=== PATIENT | female | born 1935 | race Caucasian/White ===

== ENCOUNTER 2017-01-29 20:36 | Inpatient (IN) | payer MEDICARE, OTHER ==
[~2017-01-29] VITALS: Ht 167.6 cm; Wt 60.6 kg
[2017-01-29 20:55] VITALS: BP 141/101; PULSE 115; RESP 18; TEMP 98.5; O2SAT 97
[2017-01-29 22:03] LABS: AUTOMATED NEUTROPHIL # 2.7 TH/MM3 (1.8-7.7); BASOPHIL % 0.7 % (0.0-2.0); EOSINOPHIL # 0.1 TH/MM3 (0-0.4); EOSINOPHIL % 2.5 % (0.0-4.0); HEMATOCRIT 36.3 % (35.0-46.0); HEMO FLAGS DIFF FINAL; LYMPH % 23.5 % (9.0-44.0); MEAN CELL VOLUME 91.2 FL (80.0-100.0); MEAN CORPUSCULAR HEMOGLOBIN 30.4 PG (27.0-34.0); MEAN CORPUSCULAR HGB CONC 33.3 % (32.0-36.0); MONO % 9.3 % (0.0-8.0); PLATELET COUNT 235 TH/MM3 (150-450); RED BLOOD COUNT 3.98 MIL/MM3 (4.00-5.30); WHITE BLOOD COUNT 4.3 TH/MM3 (4.0-11.0)
[2017-01-29 22:13] LABS: ANION GAP 8 MEQ/L (5-15); AST (GOT) 18 U/L (15-37); BICARBONATE 26.5 MEQ/L (21.0-32.0); BLOOD UREA NITROGEN 17 MG/DL (7-18); CHLORIDE 107 MEQ/L (98-107); GLOMERULAR FILTRATION RATE 56 ML/MIN (>89); POTASSIUM 3.9 MEQ/L (3.5-5.1); SODIUM (NA) 141 MEQ/L (136-145)
[2017-01-29 22:13] LABS: BLOOD, URINE NEG (NEG); COMMENT (UR) CULT NOT INDICATED; CULTURE IF INDICATED CULT NOT INDICATED; GLUCOSE,URINE NEG (NEG); HYALINE CAST, URINE 4 /lpf (RARE); KETONE, URINE NEG (NEG); MUCUS URINE FEW /lpf (OCC); NITRITE,URINE NEG (NEG); SQUAMOUS EPITHELIAL CELL URINE <1 /hpf (0-5); URINE COLOR LIGHT-YELLOW (YELLW/STRAW)
[2017-01-29 22:16] LABS: ALKALINE PHOSPHATASE 118 U/L (45-117); ALT (GPT) 28 U/L (10-53); TOTAL BILIRUBIN ADULT 0.3 MG/DL (0.2-1.0)
[2017-01-29 22:18] LABS: ACETAMINOPHEN LESS THAN 2.0 MCG/ML (10.0-30.0); ALCOHOL LESS THAN 3 MG/DL (0-5)
[2017-01-29] MEDS ORDERED: ALLE60TA PO (22:18)
[2017-01-29] MEDS ORDERED: LEXA20TA PO (22:18)
[2017-01-29] MEDS ORDERED: MESA400C (22:18)
[2017-01-29] MEDS ORDERED: MESA400C PO (22:19)
[2017-01-29] MEDS ORDERED: CELE200C PO (22:19)
[2017-01-29] MEDS ORDERED: SERO25TA PO (22:20)
[2017-01-29] MEDS ORDERED: TRAM50TA PO (22:20)
[2017-01-29] MEDS ORDERED: VALS1TAB65 PO (22:20)
[2017-01-30 01:00] VITALS: BP 112/62; PULSE 71; RESP 16; O2SAT 98
[2017-01-30] MEDS ORDERED: SERO50TA PO (01:20)
[2017-01-30] MEDS ORDERED: diphenhydrAMINE HCL 50 MG/ML VIAL IM ONE (01:30)
[2017-01-30] MEDS ORDERED: OLANZapine IM 10 MG VIAL IM ONE ×2 (01:45→05:45)
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
[2017-01-30 05:00] VITALS: BP 121/64; PULSE 68; RESP 17; O2SAT 97
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
[2017-01-30] MEDS ORDERED: MAGNESIUM HYDROXIDE SUSP 30 ML CUP PO PRN (12:15)
[2017-01-30] MEDS ORDERED: ALUMINUM/MAGNESIUM/SIMETH 30 ML CUP PO PRN (12:15)
[2017-01-30] MEDS ORDERED: ACETAMINOPHEN 325 MG TAB PO PRN (12:15)
[2017-01-30] MEDS ORDERED: LORazepam 0.5 MG TAB PO PRN (12:15)
[2017-01-30] MEDS ORDERED: LORazepam 2 MG/ML VIAL IM PRN (12:15)
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
[2017-01-30 14:30] VITALS: BP 168/74; PULSE 68; RESP 17; TEMP 97.8; O2SAT 95
[2017-01-30] MEDS ORDERED: VALSARTAN 160 MG TAB PO ONE (16:30)
[2017-01-30 18:16] VITALS: BP 152/67; PULSE 85; RESP 16; TEMP 97.7; O2SAT 96
[2017-01-30] MEDS ORDERED: SERO25TA PO (19:35)
[2017-01-30] MEDS ORDERED: DELZICOL PO SCH (21:00)
[2017-01-30] MEDS: QUEtiapine FUMARATE 25 MG TAB PO SCH (23:18)
[2017-01-31 05:00] VITALS: BP 130/70; PULSE 73; RESP 15; TEMP 97.8; O2SAT 91
[2017-01-31 07:32] LABS: AUTOMATED NEUTROPHIL # 2.1 TH/MM3 (1.8-7.7); BASOPHIL % 1.2 % (0.0-2.0); EOSINOPHIL # 0.2 TH/MM3 (0-0.4); EOSINOPHIL % 4.5 % (0.0-4.0); HEMATOCRIT 36.8 % (35.0-46.0); HEMO FLAGS DIFF FINAL; LYMPH % 34.6 % (9.0-44.0); LYMPHOCYTE # 1.4 TH/MM3 (1.0-4.8); MEAN CELL VOLUME 91.8 FL (80.0-100.0); MEAN CORPUSCULAR HEMOGLOBIN 30.4 PG (27.0-34.0); MEAN CORPUSCULAR HGB CONC 33.2 % (32.0-36.0); NEUT % 50.7 % (16.0-70.0); PLATELET COUNT 243 TH/MM3 (150-450); RED BLOOD COUNT 4.01 MIL/MM3 (4.00-5.30); RED CELL DISTRIBUTION WIDTH 14.1 % (11.6-17.2); WHITE BLOOD COUNT 4.2 TH/MM3 (4.0-11.0)
[2017-01-31 07:59] LABS: ANION GAP 8 MEQ/L (5-15); AST (GOT) 20 U/L (15-37); BLOOD UREA NITROGEN 18 MG/DL (7-18); CHLORIDE 110 MEQ/L (98-107); GLOMERULAR FILTRATION RATE 46 ML/MIN (>89); POTASSIUM 3.8 MEQ/L (3.5-5.1); SODIUM (NA) 144 MEQ/L (136-145)
[2017-01-31 08:26] LABS: ALKALINE PHOSPHATASE 101 U/L (45-117); ALT (GPT) 21 U/L (10-53); LDL CHOLESTEROL 130 MG/DL (0-99); TOTAL BILIRUBIN ADULT 0.3 MG/DL (0.2-1.0)
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
--- NOTE | 2017-01-31 09:14 | EKG ---
Date Performed: 01/31/2017 Time Performed: 07:16:17 PTAGE: 81 years EKG: Baseline artifact present Sinus rhythm NONSPECIFIC ST & T-WAVE ABNORMALITY BORDERLINE ECG NO PREVIOUS TRACING DOCTOR: Payam Lugo Interpretating Date/Time 01/31/2017 09:13:45
[2017-01-31] MEDS: CELECOXIB 200 MG CAP PO SCH (09:33)
[2017-01-31] MEDS: LORATADINE 10 MG TAB PO SCH (09:33)
[2017-01-31] MEDS: VALSARTAN 160 MG TAB PO SCH (09:33)
[2017-01-31] MEDS ORDERED: INFLUENZA VIRUS VACCINE (QUADRIVALENT) 0.5 ML SYR IM ONE (10:00)
[2017-01-31] MEDS ORDERED: PNEUMOCOCCAL POLYVALENT INJ 25 MCG/0.5 ML SYR IM ONE (10:00)
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
[2017-01-31] MEDS: QUEtiapine FUMARATE 25 MG TAB PO SCH ×2 (11:17→23:11)
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
[2017-01-31 15:53] LABS: HEMOGLOBIN A1a 1.2 %; HEMOGLOBIN A1b 0.9 %; HEMOGLOBIN Ao 84.8 %; HEMOGLOBIN F 1.2 %; HEMOGLOBIN LA1C 1.9 %; HEMOGLOBIN P3 3.6 %
[2017-01-31 17:46] VITALS: BP 133/79; PULSE 87; RESP 16; TEMP 98.2
[2017-02-01] MEDS: traMADol HCL 50 MG TAB PO PRN (00:45)
[2017-02-01] MEDS: clonazePAM 0.5 MG TAB PO PRN ×2 (00:46→23:28)
[2017-02-01 06:05] VITALS: BP 169/80; PULSE 83; RESP 17; TEMP 97.7; O2SAT 99
[2017-02-01] MEDS: QUEtiapine FUMARATE 25 MG TAB PO SCH ×2 (09:01→21:37)
[2017-02-01] MEDS: LORATADINE 10 MG TAB PO SCH (09:01)
[2017-02-01] MEDS: VALSARTAN 160 MG TAB PO SCH (09:01)
[2017-02-01] MEDS: CELECOXIB 200 MG CAP PO SCH (09:01)
[2017-02-01] MEDS ORDERED: cloNIDine HCL 0.1 MG TAB PO PRN (09:15)
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
--- NOTE | 2017-02-01 11:41 | HHI.PYPN ---
Subjective Remarks Patient seen for follow-up, chart review. Discussion with nursing staff reported that patient's noted to be somewhat irritable, has been compliant with medications and has been noted to be very forgetful. Patient found lying in hospital bed sufficient cooperative but able to engage. Patient states that she had been sleeping well, her mood has been good in general, noted to be alert and oriented only to person. Patient keeps asking video games storywriter where she is and who I am during same conversation. Patient has has not had aggressive behavior since admission had been tolerating medications well with no adverse drug reactions noted. Review of Systems Except as stated in HPI: all other systems reviewed are Neg Mental Status Examination Appearance: Appropriate, Disheveled Consciousness: Alert, Vigilant Orientation: Person Motor Activity: Normal gait, Abnormal gait Speech: Hesitant Language: Other Fund of Knowledge: Inadequate Attention and Concentration: Inadequate Memory: Impaired Mood: Appropriate Affect: Irritable (less so today) Thought Process & Associations: Linear, Other (concrete) Thought Content: Appropriate Hallucination Type: None Delusion Type: None Suicidal Ideation: No Suicidal Plan: No Suicidal Intention: No Homicidal Ideation: No Homicidal Plan: No Homicidal Intention: No Insight: Poor Judgment: Poor Results Vitals/IOs Vital Signs Date Time Temp Pulse Resp B/P (MAP) Pulse Ox O2 Delivery O2 Flow Rate FiO2 02/01/17 06:05 97.7 83 17 169/80 (109) 99 01/30/17 05:00 Room Air Intake and Output 02/01/17 02/01/17 02/02/17 08:00 16:00 00:00 Intake Total 0 ml Balance 0 ml Assessment & Plan Problem List: (1) Dementia in other diseases classified elsewhere with behavioral disturbance ICD Codes: F02.81 - Dementia in other diseases classified elsewhere with behavioral disturbance (2) Alzheimer's dementia with behavioral disturbance ICD Codes: G30.8 - Other Alzheimer's disease; F02.81 - Dementia in other diseases classified elsewhere with behavioral disturbance Assessment & Plan Patient at this time continues to be noted to be alert and oriented only to person. Patient continues to be confused but has not had any aggressive behavior since admission. Patient tolerating medications well. Patient tolerated recent increase quetiapine. If patient continues to remain stable on medications without any noted behavioral disturbances patient likely for discharge tomorrow back to family. Continue to monitor mood and behavior. Continue recommendations as per primary medical team. Labs have been ordered for tomorrow a.m. by medical team Discharge planning in progress Justification for Cont. Inpt. At risk for further decompensation if at lower level of care Discharge Planning Patient to return back to her residence once psychiatrically and medically cleared Volodymyr Lowe MD Feb 01, 2017 11:41
[2017-02-01 18:15] VITALS: BP 162/73; PULSE 90; RESP 18; TEMP 98.5; O2SAT 95
[2017-02-02] MEDS ORDERED: HALOPERIDOL LACTATE 5 MG/ML AMP ONE (00:14)
[2017-02-02] MEDS: HALOPERIDOL LACTATE 5 MG/ML AMP IM SCH (00:30)
[2017-02-02 06:12] VITALS: BP 118/58; PULSE 87; RESP 16; TEMP 98; O2SAT 99
[2017-02-02] MEDS: VALSARTAN 160 MG TAB PO SCH (09:14)
[2017-02-02] MEDS: LORATADINE 10 MG TAB PO SCH (09:15)
[2017-02-02] MEDS: CELECOXIB 200 MG CAP PO SCH (09:15)
[2017-02-02] MEDS: QUEtiapine FUMARATE 25 MG TAB PO SCH ×2 (09:15→21:54)
[2017-02-02 09:33] LABS: AUTOMATED NEUTROPHIL # 2.1 TH/MM3 (1.8-7.7); BASOPHIL % 0.8 % (0.0-2.0); EOSINOPHIL # 0.2 TH/MM3 (0-0.4); EOSINOPHIL % 4.5 % (0.0-4.0); HEMATOCRIT 35.4 % (35.0-46.0); HEMO FLAGS DIFF FINAL; LYMPH % 33.9 % (9.0-44.0); LYMPHOCYTE # 1.4 TH/MM3 (1.0-4.8); MEAN CELL VOLUME 91.6 FL (80.0-100.0); MEAN CORPUSCULAR HGB CONC 33.8 % (32.0-36.0); MONO % 10.8 % (0.0-8.0); PLATELET COUNT 238 TH/MM3 (150-450); RED BLOOD COUNT 3.87 MIL/MM3 (4.00-5.30); RED CELL DISTRIBUTION WIDTH 13.8 % (11.6-17.2); WHITE BLOOD COUNT 4.3 TH/MM3 (4.0-11.0)
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
[2017-02-02 09:59] LABS: ANION GAP 8 MEQ/L (5-15); AST (GOT) 21 U/L (15-37); BICARBONATE 26.7 MEQ/L (21.0-32.0); BLOOD UREA NITROGEN 21 MG/DL (7-18); CHLORIDE 108 MEQ/L (98-107); GLOMERULAR FILTRATION RATE 53 ML/MIN (>89); MAGNESIUM 2.3 MG/DL (1.5-2.5); POTASSIUM 3.8 MEQ/L (3.5-5.1); SODIUM (NA) 143 MEQ/L (136-145)
[2017-02-02 10:04] LABS: ALKALINE PHOSPHATASE 101 U/L (45-117); ALT (GPT) 20 U/L (10-53); TOTAL BILIRUBIN ADULT 0.2 MG/DL (0.2-1.0)
--- NOTE | 2017-02-02 12:00 | HHI.PYPN ---
Subjective Remarks Patient seen for follow-up, chart reviewed. Discussion she staff reported that patient is very forgetful, demeaning with staff, and recent ETO last evening for aggressive and agitation. Patient found lying in hospital bed noted to be slightly irritable as patient had to be woken up from sleep and states that she is feeling fine, denies any physical completed this time. Patient states that she met a handsome gentleman last evening but unclear whether this so that she was endorsing that she had dreamed about or believe that had occurred. Patient does not recall events last evening continues to be very confused and alert and oriented only to person very poor memory. Patient was unable to recall who lives with her at home. Patient this time denies any SI, HI, AVH or delusions. Review of Systems Except as stated in HPI: all other systems reviewed are Neg Mental Status Examination Appearance: Appropriate, Disheveled Consciousness: Alert, Vigilant Orientation: Person Motor Activity: Abnormal gait Speech: Slow Language: Other Fund of Knowledge: Inadequate Attention and Concentration: Inadequate Memory: Impaired Mood: Appropriate Affect: Irritable (less so today), Other (guarded) Thought Process & Associations: Linear, Other (concrete) Thought Content: Appropriate Hallucination Type: None Delusion Type: None Suicidal Ideation: No Suicidal Plan: No Suicidal Intention: No Homicidal Ideation: No Homicidal Plan: No Homicidal Intention: No Insight: Poor Judgment: Poor Results Labs Labs reviewed. Test 02/02/17 08:44 White Blood Count 4.3 TH/MM3 Red Blood Count 3.87 MIL/MM3 Hemoglobin 12.0 GM/DL Hematocrit 35.4 % Mean Corpuscular Volume 91.6 FL Mean Corpuscular Hemoglobin 31.0 PG Mean Corpuscular Hemoglobin Concent 33.8 % Red Cell Distribution Width 13.8 % Platelet Count 238 TH/MM3 Mean Platelet Volume 7.8 FL Neutrophils (%) (Auto) 50.0 % Lymphocytes (%) (Auto) 33.9 % Monocytes (%) (Auto) 10.8 % Eosinophils (%) (Auto) 4.5 % Basophils (%) (Auto) 0.8 % Neutrophils # (Auto) 2.1 TH/MM3 Lymphocytes # (Auto) 1.4 TH/MM3 Monocytes # (Auto) 0.5 TH/MM3 Eosinophils # (Auto) 0.2 TH/MM3 Basophils # (Auto) 0.0 TH/MM3 CBC Comment DIFF FINAL Differential Comment Blood Urea Nitrogen 21 MG/DL Creatinine 1.00 MG/DL Random Glucose 93 MG/DL Total Protein 6.6 GM/DL Albumin 3.2 GM/DL Calcium Level 9.3 MG/DL Phosphorus Level 4.0 MG/DL Magnesium Level 2.3 MG/DL Alkaline Phosphatase 101 U/L Aspartate Amino Transf (AST/SGOT) 21 U/L Alanine Aminotransferase (ALT/SGPT) 20 U/L Total Bilirubin 0.2 MG/DL Sodium Level 143 MEQ/L Potassium Level 3.8 MEQ/L Chloride Level 108 MEQ/L Carbon Dioxide Level 26.7 MEQ/L Anion Gap 8 MEQ/L Estimat Glomerular Filtration Rate 53 ML/MIN Vitals/IOs Vital Signs Date Time Temp Pulse Resp B/P (MAP) Pulse Ox O2 Delivery O2 Flow Rate FiO2 02/02/17 06:12 98.0 87 16 118/58 (78) 99 01/30/17 05:00 Room Air Intake and Output 02/02/17 02/02/17 02/03/17 08:00 16:00 00:00 Intake Total 600 ml Balance 600 ml Assessment & Plan Problem List: (1) Dementia in other diseases classified elsewhere with behavioral disturbance ICD Codes: F02.81 - Dementia in other diseases classified elsewhere with behavioral disturbance (2) Alzheimer's dementia with behavioral disturbance ICD Codes: G30.8 - Other Alzheimer's disease; F02.81 - Dementia in other diseases classified elsewhere with behavioral disturbance Assessment & Plan Patient this time had episode of agitation and aggressiveness that occurred last evening for the first time since admission which she required ETO (Haldol 2 mg IM) with good effect. We'll increase quetiapine to 25mg AM and 62.5mg HS. Continue to monitor mood and behavior. The recommendations as per primary medical team as well as continue physical therapy. Discharge planning in progress Justification for Cont. Inpt. At risk for further decompensation if at lower level of care Discharge Planning Patient return back to his daughter's residence once psychiatrically stable Volodymyr Lowe MD Feb 02, 2017 12:00
[2017-02-02] MEDS ORDERED: PILL SPLITTER OTHER PRN (12:15)
[2017-02-02 18:00] VITALS: BP 157/80; PULSE 79; RESP 16; TEMP 97.9; O2SAT 93
[2017-02-02] MEDS: clonazePAM 0.5 MG TAB PO PRN (21:53)
[2017-02-03 06:04] VITALS: BP 130/61; PULSE 78; RESP 16; TEMP 97; O2SAT 93
[2017-02-03] MEDS: VALSARTAN 160 MG TAB PO SCH (08:24)
[2017-02-03] MEDS: QUEtiapine FUMARATE 25 MG TAB PO SCH ×2 (08:24→20:18)
[2017-02-03] MEDS: CELECOXIB 200 MG CAP PO SCH (08:24)
[2017-02-03] MEDS: LORATADINE 10 MG TAB PO SCH (08:26)
--- NOTE | 2017-02-03 17:20 | HHI.PYPN ---
Subjective Remarks Pt seen and discussed with staff. She is oriented only to self. She has been labile and agitated. She received prn ativan this morning for agitation which calmed pt. She has been refusing to keep boot on for fracture and is irritable with RNs during care. She insists that her mother is awaiting her call. . No SI/ HI. Mental Status Examination Appearance: Appropriate, Disheveled Consciousness: Alert, Vigilant Orientation: Person Motor Activity: Abnormal gait Speech: Slow Language: Other Fund of Knowledge: Inadequate Attention and Concentration: Inadequate Memory: Impaired Mood: Appropriate Affect: Irritable (easily agitated), Other (guarded) Thought Process & Associations: Linear, Other (concrete) Thought Content: Appropriate Hallucination Type: None Delusion Type: None Suicidal Ideation: No Suicidal Plan: No Suicidal Intention: No Homicidal Ideation: No Homicidal Plan: No Homicidal Intention: No Insight: Poor Judgment: Poor Results Vitals/IOs Vital Signs Date Time Temp Pulse Resp B/P (MAP) Pulse Ox O2 Delivery O2 Flow Rate FiO2 02/03/17 06:04 97.0 78 16 130/61 (84) 93 Intake and Output 02/03/17 02/03/17 02/04/17 08:00 16:00 00:00 Intake Total 120 ml 720 ml 120 ml Balance 120 ml 720 ml 120 ml Assessment & Plan Problem List: (1) Dementia in other diseases classified elsewhere with behavioral disturbance ICD Codes: F02.81 - Dementia in other diseases classified elsewhere with behavioral disturbance (2) Alzheimer's dementia with behavioral disturbance ICD Codes: G30.8 - Other Alzheimer's disease; F02.81 - Dementia in other diseases classified elsewhere with behavioral disturbance Assessment & Plan Continue current tx plan. Estimated LOS: days Justification for Cont. Inpt. agitation Sabine Mckeon MD Feb 03, 2017 17:20
[2017-02-03] MEDS: clonazePAM 0.5 MG TAB PO PRN (17:41)
[2017-02-03 18:00] VITALS: BP 131/58; PULSE 86; RESP 17; TEMP 98; O2SAT 99
[2017-02-04 06:30] VITALS: BP 111/55; PULSE 82; RESP 17; TEMP 98.2; O2SAT 94
[2017-02-04] MEDS: LORATADINE 10 MG TAB PO SCH (07:47)
[2017-02-04] MEDS: CELECOXIB 200 MG CAP PO SCH (07:47)
[2017-02-04] MEDS: QUEtiapine FUMARATE 25 MG TAB PO SCH ×2 (07:47→21:05)
[2017-02-04] MEDS: VALSARTAN 160 MG TAB PO SCH (07:47)
[2017-02-04] MEDS: clonazePAM 0.5 MG TAB PO PRN (08:05)
[2017-02-04] MEDS: traMADol HCL 50 MG TAB PO PRN (12:15)
[2017-02-04 17:17] VITALS: BP 123/61; PULSE 80; TEMP 97.6; O2SAT 94
--- NOTE | 2017-02-04 18:46 | HHI.PYPN ---
Subjective Remarks Pt seen and discussed with staff. She remains irritable and easily agitated. She remains paranoid. Compliant with medications. No SI/HI Mental Status Examination Appearance: Appropriate, Disheveled Consciousness: Alert, Vigilant Orientation: Person Motor Activity: Abnormal gait Speech: Slow Language: Other Fund of Knowledge: Inadequate Attention and Concentration: Inadequate Memory: Impaired Mood: Appropriate Affect: Irritable (easily agitated), Other (guarded) Thought Process & Associations: Linear, Other (concrete) Thought Content: Appropriate Hallucination Type: None Delusion Type: None Suicidal Ideation: No Suicidal Plan: No Suicidal Intention: No Homicidal Ideation: No Homicidal Plan: No Homicidal Intention: No Insight: Poor Judgment: Poor Results Vitals/IOs Vital Signs Date Time Temp Pulse Resp B/P (MAP) Pulse Ox O2 Delivery O2 Flow Rate FiO2 02/04/17 17:17 97.6 80 123/61 (81) 94 02/04/17 06:30 17 Intake and Output 02/04/17 02/04/17 02/05/17 08:00 16:00 00:00 Intake Total 120 ml 120 ml Balance 120 ml 120 ml Assessment & Plan Problem List: (1) Dementia in other diseases classified elsewhere with behavioral disturbance ICD Codes: F02.81 - Dementia in other diseases classified elsewhere with behavioral disturbance (2) Alzheimer's dementia with behavioral disturbance ICD Codes: G30.8 - Other Alzheimer's disease; F02.81 - Dementia in other diseases classified elsewhere with behavioral disturbance Assessment & Plan Continue current tx plan Estimated LOS: days Justification for Cont. Inpt. impairments in safety Sabine Mckeon MD Feb 04, 2017 18:46
[2017-02-05 06:15] VITALS: BP 134/56; PULSE 80; RESP 17; TEMP 98.1; O2SAT 96
[2017-02-05] MEDS: LORATADINE 10 MG TAB PO SCH (09:00)
[2017-02-05] MEDS: CELECOXIB 200 MG CAP PO SCH (09:00)
[2017-02-05] MEDS: VALSARTAN 160 MG TAB PO SCH (09:00)
[2017-02-05] MEDS: QUEtiapine FUMARATE 25 MG TAB PO SCH (09:00)
[2017-02-05] MEDS: traMADol HCL 50 MG TAB PO PRN (11:08)
[2017-02-05] MEDS ORDERED: SERO25TA PO ×2 (12:38)
[2017-02-05] MEDS ORDERED: SERO50TA PO (12:38)
[2017-02-05] MEDS ORDERED: CLAR10TA7 PO (12:38)
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
== END 2017-02-05 14:50 | disposition home or self-care (01) | DRG 57 ==
LOC: NEDAMB 20:36 → NEDA 01-30 12:01 → H4EA 01-30 12:50
PROVIDERS: ADMIT Student in an Organized Health Care Education/Training Program; ATTEND Student in an Organized Health Care Education/Training Program
DX: G30.9 Alzheimer's disease, unspecified (principal); F02.81 Dementia in other diseases classified elsewhere, unspecified severity, with behavioral disturbance; K51.90 Ulcerative colitis, unspecified, without complications; I10 Essential (primary) hypertension; S82.831D Other fracture of upper and lower end of right fibula, subsequent encounter for closed fracture with routine healing; R45.1 Restlessness and agitation; Z23 Encounter for immunization; Z85.3 Personal history of malignant neoplasm of breast; Z85.42 Personal history of malignant neoplasm of other parts of uterus; Z90.12 Acquired absence of left breast and nipple; Z90.710 Acquired absence of both cervix and uterus
CPT/HCPCS: 80053; 80061; 80307; 81001; 82306; 82607; 83036; 83735; 84100; 84443; 85025; 90686; 90732; 93005; 96372; J1200; J1630; Q2038